=== PATIENT | male | born 1955 | race Caucasian/White ===

== ENCOUNTER 2021-01-31 09:49 | Emergency (ER) | payer MEDICAID, OTHER ==
[~2021-01-31] VITALS: Ht 172.7 cm; Wt 78.0 kg
[~2021-01-31 09:49] MED LIST: UNKNOWN DIURETIC; [UNRECOGNIZED DRUG - REMARK]
--- NOTE | 2021-01-31 10:11 | NUR ---
PT TO ROOM 10 W/ C/O BLEEDING FROM EXTERNAL EAR X 2 DAYS. PT STATES HE HAS BEEN DRINKING ETOH X 1 YR. WAS GOING TO GET THE MAIL WHEN PT TRIPPED AND FELL. UNKNOWN HOW INJURY OCCURRED. PT STATES +LOC AT THAT TIME. BLEEDING HAS NOT STOPPED. SMALL PUNCTURE NOTED TO EAR. PT AND FAMILY DENY APPLYING PRESSURE TO EAR TO STOP BLEEDING. PT AOX4. NEURO INTACT. NAD. MONITORS APPLIED. VSS. Addendum: 01/31/21 at 1019 by BNICHOLS PT DENIES BEING ON BLOOD THINNERS.
--- NOTE | 2021-01-31 10:20 | NUR ---
ERP DR. CAVAZOS AT BEDSIDE FOR EVAL.
[2021-01-31] MEDS ORDERED: DIPH,PERTUSS(ACELL),TET VAC/PF 0.5 ML IM-VACC ONE ×2 (10:30→10:35)
[2021-01-31] MEDS ORDERED: LIDOCAINE-MPF 1%, 5ML INFIL ONE (10:30)
[2021-01-31] MEDS ORDERED: LIDOCAINE-MPF 1%, 5ML ONE (10:35)
--- NOTE | 2021-01-31 10:43 | NUR ---
PT RESTING ON GURNEY. NADN. DEL TORO.
--- NOTE | 2021-01-31 11:31 | NUR ---
PT PUNCTURE WOUND TO EAR HAS STOPPED BLEEDING. ERP DR. CAVAZOS AWARE.
[2021-01-31 11:35] VITALS: BP 119/93
--- NOTE | 2021-01-31 11:36 | NUR ---
PT RESTING ON GURNEY. NADN. DEL TORO.
== END 2021-01-31 12:40 | disposition home or self-care (01) ==
LOC: ED 10:46
DX: S06.309A Unspecified focal traumatic brain injury with loss of consciousness of unspecified duration, initial encounter (principal); F10.20 Alcohol dependence, uncomplicated; W10.8XXA Fall (on) (from) other stairs and steps, initial encounter; Y93.89 Activity, other specified; Y92.098 Other place in other non-institutional residence as the place of occurrence of the external cause; Y99.8 Other external cause status; Y90.0 Blood alcohol level of less than 20 mg/100 ml
CPT/HCPCS: 90471; 90715; 99283